=== PATIENT | female | born 1985 ===

== ENCOUNTER 2019-10-10 20:03 | Inpatient (IN) | payer MEDICAID ==
[~2019-10-10] VITALS: Ht 165.1 cm; Wt 91.9 kg
[2019-10-10] MEDS ORDERED: LORazepam 2 MG/ML VIAL IM ONE (20:45)
[2019-10-10] MEDS ORDERED: HALOPERIDOL LACTATE 5 MG/ML VIAL IM ONE (20:45)
[2019-10-10] MEDS ORDERED: DiphenhydrAMINE HCL 50 MG/ML VIAL IM ONE (20:45)
[2019-10-10 21:56] LABS: BASOPHILS % (AUTO) 0.4 % (0.0-2.0); EOSINOPHILS % (AUTO) 0.1 % (1.0-6.0); HEMATOCRIT 39.8 % (36-46); HEMOGLOBIN 13.3 g/dL (12.0-16.0); LYMPHOCYTES # (AUTO) 1.8 K/uL (1.0-4.8); LYMPHOCYTES % (AUTO) 18.6 % (22.0-44.0); MEAN CORPUSCULAR HEMOGLOBIN 30.7 pg (26.0-34.0); MEAN CORPUSCULAR HGB CONC 33.4 G/dL (31.0-37.0); MEAN CORPUSCULAR VOLUME 92 fL (80-100); MONOCYTES # (AUTO) 0.3 K/uL (0.1-1.0); MONOCYTES % (AUTO) 3.5 % (2.0-9.0); NEUTROPHILS # (AUTO) 7.5 K/uL (1.8-7.7); NEUTROPHILS % (AUTO) 77.4 % (40.0-70.0); PLATELET COUNT (AUTO) 312 K/uL (150-450); RED BLOOD CELL COUNT(AUTO) 4.34 MIL/uL (4.00-5.20); RED CELL DISTRIBUTION WIDTH 13.3 % (11.5-14.5)
[2019-10-10 22:07] LABS: ANION GAP 13 mmol/L (8-16); CARBON DIOXIDE 22 mmol/L (22-29); CHLORIDE 110 mmol/L (98-107); CREATININE 1.27 mg/dL (0.60-1.30); GLOMERULAR FILTR. RATE CALC 49 mL/min (>60); GLUCOSE,RANDOM 121 mg/dL (70-110); POTASSIUM 3.6 mmol/L (3.5-5.1); SODIUM SERUM 145 mmol/L (136-145); UREA NITROGEN, BLOOD 13 mg/dL (7-18)
[2019-10-10 22:20] LABS: ALANINE AMINOTRANSFERASE 27 U/L (12-78); ALBUMIN 3.6 g/dL (3.4-5.0); ALKALINE PHOSPHATASE 106 U/L (46-116); ASPARTATE AMINOTRANSFERASE 20 U/L (15-37); HCG,QUANTITATIVE < 1 mIU/mL (0-6); TOTAL PROTEIN, SERUM 7.8 g/dL (6.4-8.2)
[2019-10-10 22:32] LABS: BILIRUBIN,TOTAL 0.1 mg/dL (0.1-1.0)
[2019-10-11] MEDS ORDERED: QUEtiapine FUMARATE 100 MG TABLET PO PRN (01:00)
[2019-10-11] MEDS ORDERED: LORazepam 2 MG TABLET PO PRN (01:00)
[2019-10-11] MEDS ORDERED: ZOLPIDEM TARTRATE 10 MG TABLET PO PRN (01:00)
[2019-10-11 07:41] LABS: APPEARANCE,URINE CLOUDY (CLEAR); BILIRUBIN,URINE NEGATIVE (NEGATIVE); GLUCOSE, URINE (UA) NEGATIVE (NEGATIVE); KETONES,URINE TRACE mg/dL (NEGATIVE); LEUKOCYTE ESTERASE ,URINE NEGATIVE (NEGATIVE); NITRATE,URINE NEGATIVE (NEGATIVE); PROTEIN,URINE TRACE (NEGATIVE); UROBILINOGEN,URINE 0.2 mg/dL (<=1.0)
[2019-10-11 07:44] LABS: AMPHET/METH SCREEN,URINE NEGATIVE (NEGATIVE); BARBITURATE SCREEN, URINE NEGATIVE (NEGATIVE); BENZODIAZEPINES SCREEN,URINE NEGATIVE (NEGATIVE); CANNABINOID SCREEN,URINE NEGATIVE (NEGATIVE); COCAINE SCREEN,URINE NEGATIVE (NEGATIVE); METHADONE SCREEN, URINE NEGATIVE (NEGATIVE); OPIATE SCREEN,URINE NEGATIVE (NEGATIVE)
[2019-10-11 07:46] LABS: PHENCYCLIDINE SCREEN,URINE NEGATIVE (NEGATIVE)
[2019-10-11 08:20] LABS: BACTERIA,URINE None Seen /HPF (None Seen); OCCULT BLOOD,URINE MODERATE (NEGATIVE); WBC,URINE None Seen /HPF (0-5)
[2019-10-11 08:21] LABS: URIC ACID CRYSTALS,URINE Moderate /LPF (None Seen)
[2019-10-11 16:15] VITALS: BP 122/70
[2019-10-11 17:09] VITALS: BP 122/70
[2019-10-11 23:15] VITALS: BP 125/75
[2019-10-12 03:15] VITALS: BP 121/70
[2019-10-12 04:13] VITALS: BP 120/76
[2019-10-12] MEDS ORDERED: LORazepam 2 MG TABLET PO PRN (07:00)
[2019-10-12] MEDS ORDERED: CYANOCOBALAMIN 1,000 MCG/ML VIAL IM ONE (07:00)
[2019-10-12 08:32] VITALS: BP_SYST 112; BP_SYST 117; BP_DIAS 69; BP_DIAS 74
[2019-10-12 08:54] LABS: CHOL/HDL RATIO 3.2 (3.9-5.7)
[2019-10-12] MEDS: THIAMINE 100 MG TABLET PO SCH (08:57)
[2019-10-12] MEDS: FOLIC ACID 1 MG TABLET PO SCH (08:57)
[2019-10-12] MEDS: LORazepam 2 MG TABLET PO SCH ×2 (08:57→12:04)
[2019-10-12] MEDS ORDERED: MAG HYDROX/AL HYDROX/SIMETH ES 30 ML SUSPENSION UDCUP PO PRN (16:30)
[2019-10-12] MEDS ORDERED: HydrOXYzine PAMOATE 50 MG CAPSULE PO PRN (16:30)
[2019-10-12] MEDS ORDERED: TUBERCULIN, PURIFIED PROTEIN DERIVATIVE 5 TU/0.1 ML SYRINGE ID ONE (16:30)
[2019-10-12] MEDS ORDERED: DIAZEPAM 10 MG TABLET PO PRN (16:30)
[2019-10-12] MEDS ORDERED: MAGNESIUM HYDROXIDE SUSPENSION 30 ML UDCUP PO PRN (16:30)
[2019-10-12] MEDS ORDERED: ACETAMINOPHEN 325 MG TABLET PO PRN (16:30)
[2019-10-12] MEDS ORDERED: GuaiFENesin/D-METHORPHAN [SUGAR-FREE] 200-20MG/10 ML SYRUP UDCUP PO PRN (16:30)
[2019-10-12] MEDS ORDERED: PROMETHAZINE HCL 25 MG TABLET PO PRN (16:30)
[2019-10-12] MEDS ORDERED: LOPERAMIDE HCL 2 MG CAPSULE PO PRN (16:30)
[2019-10-12 16:32] VITALS: BP 120/72
[2019-10-12 16:33] VITALS: BP 120/72
[2019-10-12] MEDS: GABAPENTIN 300 MG CAPSULE PO SCH ×2 (16:47→23:24)
[2019-10-13 01:25] VITALS: BP 117/78
[2019-10-13] MEDS ORDERED: DIAZEPAM 10 MG TABLET PO PRN (07:00)
[2019-10-13 08:23] LABS: CHOL/HDL RATIO 3.5 (3.9-5.7); CHOLESTEROL 189 mg/dL (131-200); FREE T4 (FREE THYROXINE) 1.15 ng/dL (0.76-1.46); HCG,QUANTITATIVE < 1 mIU/mL (0-6); HDL CHOLESTEROL 54 mg/dL (40-60); LDL CHOL (CALC.) 116 mg/dL (0-130); THYROID STIMULATING HORMONE 2.35 uIU/mL (0.36-3.74); TRIGLYCERIDES 96 mg/dL (15-150)
[2019-10-13 08:25] LABS: HEMOGLOBIN A1C 5.4 % (3.8-5.6)
[2019-10-13] MEDS: DIAZEPAM 10 MG TABLET PO SCH ×4 (09:00→20:58)
[2019-10-13] MEDS: THIAMINE 100 MG TABLET PO SCH (09:00)
[2019-10-13] MEDS ORDERED: PARoxetine HCL 10 MG TABLET PO SCH (09:00)
[2019-10-13] MEDS: GABAPENTIN 300 MG CAPSULE PO SCH ×2 (09:01→13:06)
[2019-10-13] MEDS: NALTREXONE HCL 50 MG TABLET PO SCH (09:01)
[2019-10-13] MEDS: FOLIC ACID 1 MG TABLET PO SCH (09:01)
[2019-10-13 10:11] VITALS: BP 123/84
[2019-10-13 10:16] VITALS: BP 123/84
[2019-10-13] MEDS ORDERED: NALT50TA PO (13:53)
[2019-10-13] MEDS ORDERED: GABA-1181 PO (13:53)
[2019-10-13] MEDS ORDERED: PARO10TA71 PO (13:53)
[2019-10-13 16:37] VITALS: BP 126/78
[2019-10-13] MEDS: GABAPENTIN 400 MG CAPSULE PO SCH ×2 (16:40→20:58)
[2019-10-13 16:48] VITALS: BP 126/78
[2019-10-13 16:49] VITALS: BP 126/78
[2019-10-14 06:33] VITALS: BP 126/89
[2019-10-14 06:39] VITALS: BP 126/89
[2019-10-14] MEDS ORDERED: LORazepam 1 MG TABLET PO PRN (07:00)
[2019-10-14] MEDS: FOLIC ACID 1 MG TABLET PO SCH (08:05)
[2019-10-14] MEDS: DIAZEPAM 10 MG TABLET PO SCH (08:06)
[2019-10-14] MEDS: THIAMINE 100 MG TABLET PO SCH (08:06)
[2019-10-14] MEDS: NALTREXONE HCL 50 MG TABLET PO SCH (08:06)
[2019-10-14] MEDS: GABAPENTIN 400 MG CAPSULE PO SCH (08:06)
[2019-10-14 08:11] VITALS: BP 121/69
[2019-10-14] MEDS ORDERED: PARoxetine HCL 20 MG TABLET PO SCH (09:00)
[2019-10-14] MEDS ORDERED: LORazepam 1 MG TABLET PO SCH (09:00)
[2019-10-15] MEDS ORDERED: DIAZEPAM 5 MG TABLET PO PRN (07:00)
[2019-10-15] MEDS ORDERED: LORazepam 1 MG TABLET PO PRN (07:00)
[2019-10-15] MEDS ORDERED: DIAZEPAM 5 MG TABLET PO SCH (09:00)
[2019-10-16] MEDS ORDERED: DIAZEPAM 5 MG TABLET PO PRN (07:00)
== END 2019-10-14 13:40 | disposition home or self-care (01) | DRG 885 ==
LOC: EMS 20:07 → B3A 10-11 15:50
PROVIDERS: ADMIT Psychiatry & Neurology Psychiatry; ATTEND Psychiatry & Neurology Psychiatry
DX: F33.9 Major depressive disorder, recurrent, unspecified (principal); R45.851 Suicidal ideations; G93.40 Encephalopathy, unspecified; Z91.19 Patient's noncompliance with other medical treatment and regimen; F10.129 Alcohol abuse with intoxication, unspecified; F17.210 Nicotine dependence, cigarettes, uncomplicated; G40.409 Other generalized epilepsy and epileptic syndromes, not intractable, without status epilepticus; R31.9 Hematuria, unspecified; Y90.9 Presence of alcohol in blood, level not specified
CPT/HCPCS: 83036; 84439; 84443; 86592; 93005; G0480; J1200; J1630; J2060; J3420